=== PATIENT | female | born 1980 | race Caucasian/White ===

== ENCOUNTER 2021-08-25 15:52 | Outpatient (REF) | payer MEDICAID, SELFPAY ==
[2021-08-25 17:26] LABS: ALT 24 U/L (14-59); AST 18 U/L (15-37); Albumin 4.1 g/dL (3.4-5.0); Alkaline Phosphatase 67 U/L (46-116); Anion Gap 8.9 mmol/L (3-11); BUN 11 mg/dL (7-18); Bilirubin, Total 0.5 mg/dL (0.2-1.0); CO2 25.1 mmol/L (21.0-32.0); CREATININE 0.7 mg/dL (0.55-1.02); Calcium 8.7 mg/dL (8.5-10.1); Chloride 106 mmol/L (98-107); Glucose 98 mg/dL (74-106); Potassium 4.1 mmol/L (3.5-5.1); Sodium 140 mmol/L (136-145); TSH (W/Ref FT4) 0.94 uIU/mL (0.36-3.74)
[2021-08-27 06:39] LABS: Vitamin D 25 Total 70.5 ng/mL (30-100)
== END 2021-08-25 15:53 | disposition home or self-care (01) ==
LOC: NCHCN 15:52
PROVIDERS: Visit Provider Nurse Practitioner Family
DX: L65.9 Nonscarring hair loss, unspecified (principal)
CPT/HCPCS: 80053; 82306; 84443

== ENCOUNTER 2021-09-02 08:15 | Outpatient (REF) | payer MEDICAID, SELFPAY ==
[2021-09-02 16:02] LABS: Calculated LDL 71 mg/dL (<100); Cholesterol 150 mg/dL (<200); Glucose 98 mg/dL (74-106); HDL Cholesterol 72 mg/dL (40-60); Triglyceride 37 mg/dL (<150)
== END 2021-09-02 08:16 | disposition home or self-care (01) ==
LOC: NCHCN 08:15
PROVIDERS: Visit Provider Nurse Practitioner Family
DX: Z13.1 Encounter for screening for diabetes mellitus (principal); Z13.220 Encounter for screening for lipoid disorders; Z00.00 Encounter for general adult medical examination without abnormal findings
CPT/HCPCS: 80061; 82947

== ENCOUNTER 2022-08-17 13:35 | Outpatient (REF) | payer MEDICAID, SELFPAY ==
[2022-08-17 15:58] LABS: Uric Acid 2.8 mg/dL (2.6-6.0)
== END 2022-08-17 13:36 | disposition home or self-care (01) ==
LOC: NCHCN 13:35
PROVIDERS: PCP Nurse Practitioner Family; Visit Provider Nurse Practitioner Family
DX: M25.48 Effusion, other site (principal)
CPT/HCPCS: 84550